=== PATIENT | female | born 1930 | race Caucasian/White ===

== ENCOUNTER 2018-02-17 10:00 | Inpatient (IN) | payer MEDICARE ==
[~2018-02-17] VITALS: Ht 160 cm; Wt 66.0 kg
[~2018-02-17 10:00] MED LIST: ALLEGRA60 M1 PO; ANTIVERT12.5 MG PO; OMEPRAZOLE DR20 MG PO; PLAVIX75 MG PO
[2018-02-17 10:04] VITALS: BP 157/69
[2018-02-17 10:25] LABS: BASO # 0.1 10*3/uL (0.0-0.1); BASO % 0.8 % (0.0-1.0); EOS # 0.3 10*3/uL (0.0-0.4); EOS % 3.4 % (1.0-4.0); HEMATOCRIT 39.4 % (37.0-47.0); HEMOGLOBIN 12.9 g/dl (12.0-16.0); LYMPH % 12.5 % (27.0-41.0); MEAN CELL VOLUME 102.3 fl (81.0-99.0); MEAN CORPUSCULAR HGB 33.5 pg (27.0-31.0); MEAN CORPUSCULAR HGB CONC 32.7 g/dl (33.0-37.0); MEAN PLATELET VOLUME 9.1 fl (9.6-12.3); MONO % 12.1 % (3.0-9.0); NEUT # 5.6 10*3/uL (2.3-7.9); NEUT % 70.8 % (47.0-73.0); PLATELET COUNT AUTOMATED 289 10*3/uL (130-400); RED BLOOD COUNT 3.85 10*6/uL (4.10-5.10); RED CELL DISTRI WIDTH 13.9 % (0-14.5); WHITE BLOOD COUNT 7.9 10*3/uL (4.8-10.8)
[2018-02-17 10:42] LABS: ALBUMIN 3.6 gm/dl (3.1-4.5); ALKALINE PHOSPHATASE 106 U/L (45-117); BUN 24 mg/dl (7-24); CHLORIDE 105 mmol/L (98-107); CREATININE 0.91 mg/dL (0.55-1.02); POTASSIUM 4.2 mmol/L (3.5-5.1); SGOT/AST 26 IU/L (3-35); SGPT/ALT 21 U/L (12-78); SODIUM 140 mmol/L (136-145); TOTAL PROTEIN 7.6 gm/dL (6.4-8.2)
[2018-02-17 10:49] LABS: TROPONIN I 0.096 ng/ml (<0.045)
[2018-02-17 11:14] VITALS: BP 152/71
[2018-02-17 12:00] VITALS: BP 164/78
[2018-02-17] MEDS ORDERED: LASIX40 MG PO (12:20)
[2018-02-17] MEDS ORDERED: SINGULAIR10 M1 PO (12:20)
[2018-02-17] MEDS ORDERED: VITAMIN D32000 UNI1 PO (12:27)
[2018-02-17] MEDS ORDERED: BENZONATATE100 M1 PO (12:27)
[2018-02-17] MEDS ORDERED: BENADRYL25 M2 PO (12:29)
[2018-02-17] MEDS ORDERED: CLARITIN10 MG PO (12:30)
[2018-02-17] MEDS ORDERED: MECLIZINE HCL12.5 MG PO (12:30)
[2018-02-17] MEDS ORDERED: MOTRIN IB200 M1 PO (12:31)
[2018-02-17] MEDS ORDERED: Ipratropium Brom3 ML INH (12:32)
[2018-02-17 13:30] VITALS: BP 152/70
[2018-02-17 16:00] VITALS: BP 134/62
[2018-02-17 20:00] VITALS: BP 138/67
[2018-02-18] VITALS: BP 123/63
[2018-02-18 06:29] LABS: BASO % 0.1 % (0.0-1.0); HEMATOCRIT 37.6 % (37.0-47.0); HEMOGLOBIN 12.7 g/dl (12.0-16.0); LYMPH # 0.7 10*3/uL (1.3-4.4); LYMPH % 8.9 % (27.0-41.0); MEAN CELL VOLUME 101.1 fl (81.0-99.0); MEAN CORPUSCULAR HGB 34.1 pg (27.0-31.0); MEAN CORPUSCULAR HGB CONC 33.8 g/dl (33.0-37.0); MEAN PLATELET VOLUME 9.6 fl (9.6-12.3); MONO # 0.5 10*3/uL (0.1-1.0); MONO % 6.7 % (3.0-9.0); NEUT # 6.6 10*3/uL (2.3-7.9); NEUT % 83.9 % (47.0-73.0); NUCLEATED RED BLOOD CELL 0.3 % (0.0-0.0); PLATELET COUNT AUTOMATED 330 10*3/uL (130-400); RED BLOOD COUNT 3.72 10*6/uL (4.10-5.10); RED CELL DISTRI WIDTH 13.9 % (0-14.5); WHITE BLOOD COUNT 7.9 10*3/uL (4.8-10.8)
[2018-02-18 06:41] LABS: ALBUMIN 3.3 gm/dl (3.1-4.5); CREATININE 1.24 mg/dL (0.55-1.02); PHOSPHOROUS 3.1 mg/dL (2.5-4.9); POTASSIUM 3.5 mmol/L (3.5-5.1); TOTAL PROTEIN 7.7 gm/dL (6.4-8.2)
[2018-02-18 06:47] LABS: FREE T4 1.05 ng/dl (0.76-1.46); THYROID STIM HORMONE (HS) 0.374 uIU/ml (0.358-4.75)
[2018-02-18 08:00] VITALS: BP 120/50
[2018-02-18 08:19] LABS: VITAMIN D, 25-HYDROXY 31.8 ng/mL (30-100)
[2018-02-18 16:00] VITALS: BP 114/57
[2018-02-18 20:00] VITALS: BP 138/64
[2018-02-19] VITALS: BP 145/75
[2018-02-19 08:00] VITALS: BP 160/68
[2018-02-19 08:33] LABS: ALBUMIN 3.1 gm/dl (3.1-4.5); BUN 30 mg/dl (7-24); CHLORIDE 104 mmol/L (98-107); CREATININE 0.92 mg/dL (0.55-1.02); PHOSPHOROUS 3.2 mg/dL (2.5-4.9); POTASSIUM 4.3 mmol/L (3.5-5.1); SODIUM 142 mmol/L (136-145)
[2018-02-19 12:00] VITALS: BP 154/62
[2018-02-20] VITALS: BP 143/73
[2018-02-20 08:00] VITALS: BP 150/66
[2018-02-20 12:00] VITALS: BP 130/58
[2018-02-20] MEDS ORDERED: PREDNISONE10 MG PO (15:47)
[2018-02-20] MEDS ORDERED: ZITHROMAX250 MG PO (15:47)
[2018-02-20 16:00] VITALS: BP 121/66
== END 2018-02-20 18:06 | disposition home or self-care (01) | DRG 291 ==
LOC: ED 10:00 → 5E 11:04 → EDHOLD 11:04 → 5E 11:15
PROVIDERS: Nurse Practitioner Family; Registered Nurse
DX: I11.0 Hypertensive heart disease with heart failure (principal); J96.01 Acute respiratory failure with hypoxia; J18.9 Pneumonia, unspecified organism; J44.0 Chronic obstructive pulmonary disease with (acute) lower respiratory infection; I24.8 Other forms of acute ischemic heart disease; I50.33 Acute on chronic diastolic (congestive) heart failure; R91.1 Solitary pulmonary nodule; E83.41 Hypermagnesemia; R00.1 Bradycardia, unspecified; I44.0 Atrioventricular block, first degree; I25.10 Atherosclerotic heart disease of native coronary artery without angina pectoris; Z66 Do not resuscitate; Z51.5 Encounter for palliative care; F03.90 Unspecified dementia, unspecified severity, without behavioral disturbance, psychotic disturbance, mood disturbance, and anxiety; Z86.73 Personal history of transient ischemic attack (TIA), and cerebral infarction without residual deficits; Z88.2 Allergy status to sulfonamides; Z88.1 Allergy status to other antibiotic agents; Z88.8 Allergy status to other drugs, medicaments and biological substances; Z79.899 Other long term (current) drug therapy; Z79.1 Long term (current) use of non-steroidal anti-inflammatories (NSAID); Z82.3 Family history of stroke; Z80.6 Family history of leukemia; Z79.02 Long term (current) use of antithrombotics/antiplatelets

== ENCOUNTER 2018-03-27 16:11 | Inpatient (IN) | payer MEDICARE ==
[~2018-03-27] VITALS: Ht 160 cm; Wt 65.8 kg
[~2018-03-27 16:11] MED LIST changes: +BENADRYL25 M2 PO; +BENZONATATE100 M1 PO; +CLARITIN10 MG PO; +Ipratropium Brom3 ML INH; +LASIX40 MG PO; +LOTRISONE30 ML PO; +MECLIZINE HCL12.5 MG PO; +MOTRIN IB200 M1 PO; +PREDNISONE10 MG PO; +SINGULAIR10 M1 PO; +VITAMIN D32000 UNI1 PO; +ZITHROMAX250 MG PO
[2018-03-27 16:15] VITALS: BP 153/63
[2018-03-27 16:34] LABS: BILIRUBIN NEGATIVE (NEGATIVE); BLOOD NEGATIVE (NEGATIVE); CLARITY CLEAR (CLEAR); COLOR YELLOW (YELLOW); GLUCOSE NEGATIVE (NEGATIVE); KETONE NEGATIVE (NEGATIVE); LEUKO ESTERASE 1+ (NEGATIVE); NITRITE NEGATIVE (NEGATIVE); UROBILINOGEN 0.2 E.U./dl (0.2-1.0)
[2018-03-27 16:41] LABS: BACTERIA TRACE
[2018-03-27 17:35] VITALS: BP 150/73
[2018-03-27 17:40] LABS: BASO # 0.1 10*3/uL (0.0-0.1); BASO % 0.7 % (0.0-1.0); EOS # 0.1 10*3/uL (0.0-0.4); EOS % 1.6 % (1.0-4.0); HEMATOCRIT 37.1 % (37.0-47.0); HEMOGLOBIN 11.8 g/dl (12.0-16.0); LYMPH # 1.1 10*3/uL (1.3-4.4); MEAN CELL VOLUME 104.8 fl (81.0-99.0); MEAN CORPUSCULAR HGB 33.3 pg (27.0-31.0); MEAN CORPUSCULAR HGB CONC 31.8 g/dl (33.0-37.0); MEAN PLATELET VOLUME 9.4 fl (9.6-12.3); MONO # 1.3 10*3/uL (0.1-1.0); MONO % 18.6 % (3.0-9.0); NEUT # 4.3 10*3/uL (2.3-7.9); NEUT % 61.7 % (47.0-73.0); PLATELET COUNT AUTOMATED 293 10*3/uL (130-400); RED BLOOD COUNT 3.54 10*6/uL (4.10-5.10); RED CELL DISTRI WIDTH 13.9 % (0-14.5)
[2018-03-27 17:48] LABS: ACT PARTIAL THROMBO TIME 21.9 SECONDS (20.8-31.5); INTERNATIONAL NORM RATIO 0.9 (2.0-3.5)
[2018-03-27 17:56] LABS: ALBUMIN 3.1 gm/dl (3.1-4.5); ALKALINE PHOSPHATASE 117 U/L (45-117); BUN 18 mg/dl (7-24); CHLORIDE 100 mmol/L (98-107); CREATININE 1.08 mg/dL (0.55-1.02); LIPASE 58 U/L (73-393); POTASSIUM 4.3 mmol/L (3.5-5.1); SGOT/AST 23 IU/L (3-35); SGPT/ALT 21 U/L (12-78); SODIUM 140 mmol/L (136-145); TOTAL PROTEIN 7.5 gm/dL (6.4-8.2)
[2018-03-27 18:05] LABS: TROPONIN I < 0.015 ng/ml (<0.045)
[2018-03-27 18:42] VITALS: BP 133/58
[2018-03-27 20:00] VITALS: BP 143/57
[2018-03-27 21:30] VITALS: BP 143/57
[2018-03-27] MEDS ORDERED: BREO ELLIPTA 11 EACH INH (22:11)
[2018-03-27] MEDS ORDERED: ALDACTONE25 M1 PO (22:12)
[2018-03-28] VITALS: BP 136/62
[2018-03-28 06:50] LABS: BASO % 0.3 % (0.0-1.0); EOS # 0.1 10*3/uL (0.0-0.4); EOS % 1.5 % (1.0-4.0); HEMATOCRIT 32.6 % (37.0-47.0); HEMOGLOBIN 10.5 g/dl (12.0-16.0); LYMPH # 1.2 10*3/uL (1.3-4.4); LYMPH % 17.3 % (27.0-41.0); MEAN CELL VOLUME 103.8 fl (81.0-99.0); MEAN CORPUSCULAR HGB 33.4 pg (27.0-31.0); MEAN CORPUSCULAR HGB CONC 32.2 g/dl (33.0-37.0); MEAN PLATELET VOLUME 9.2 fl (9.6-12.3); MONO # 1.3 10*3/uL (0.1-1.0); MONO % 19.1 % (3.0-9.0); NEUT # 4.1 10*3/uL (2.3-7.9); NEUT % 60.8 % (47.0-73.0); PLATELET COUNT AUTOMATED 261 10*3/uL (130-400); RED BLOOD COUNT 3.14 10*6/uL (4.10-5.10); WHITE BLOOD COUNT 6.8 10*3/uL (4.8-10.8)
[2018-03-28 07:13] LABS: BUN 17 mg/dl (7-24); CHLORIDE 102 mmol/L (98-107); CREATININE 0.98 mg/dL (0.55-1.02); SODIUM 139 mmol/L (136-145)
[2018-03-28 08:00] VITALS: BP 127/57
[2018-03-28 12:00] VITALS: BP 115/61
[2018-03-28 16:00] VITALS: BP 120/61
[2018-03-28 20:00] VITALS: BP 124/57
[2018-03-29] VITALS: BP 116/70
[2018-03-29 06:08] LABS: HEMOGLOBIN 10.2 g/dl (12.0-16.0); MEAN CELL VOLUME 104.6 fl (81.0-99.0); MEAN CORPUSCULAR HGB 33.3 pg (27.0-31.0); MEAN CORPUSCULAR HGB CONC 31.9 g/dl (33.0-37.0); MEAN PLATELET VOLUME 9.6 fl (9.6-12.3); PLATELET COUNT AUTOMATED 266 10*3/uL (130-400); RED BLOOD COUNT 3.06 10*6/uL (4.10-5.10); RED CELL DISTRI WIDTH 14.1 % (0-14.5); WHITE BLOOD COUNT 5.2 10*3/uL (4.8-10.8)
[2018-03-29 06:27] LABS: BUN 23 mg/dl (7-24); CHLORIDE 105 mmol/L (98-107); CREATININE 1.04 mg/dL (0.55-1.02); POTASSIUM 3.9 mmol/L (3.5-5.1); SODIUM 142 mmol/L (136-145)
[2018-03-29 07:30] LABS: BASOPHILS 2 % (0-1); PLATELET SUFFICIENCY NORMAL (NORMAL); TOTAL CELLS COUNTED 100 #CELLS
[2018-03-29 08:00] VITALS: BP 124/65
[2018-03-29 12:00] VITALS: BP 121/54
[2018-03-29] MEDS ORDERED: DOXYCYCLINE100 M3 PO (12:39)
[2018-03-29 16:00] VITALS: BP 116/54
== END 2018-03-29 16:57 | disposition home or self-care (01) | DRG 603 ==
LOC: ED 16:11 → EDHOLD 19:01 → 4E 19:01
PROVIDERS: Internal Medicine Nephrology; Physician Assistant; Student in an Organized Health Care Education/Training Program
DX: L03.116 Cellulitis of left lower limb (principal); E87.2 Acidosis; D53.9 Nutritional anemia, unspecified; I11.0 Hypertensive heart disease with heart failure; I50.32 Chronic diastolic (congestive) heart failure; N30.00 Acute cystitis without hematuria; E66.3 Overweight; L03.115 Cellulitis of right lower limb; D72.810 Lymphocytopenia; J44.9 Chronic obstructive pulmonary disease, unspecified; F03.90 Unspecified dementia, unspecified severity, without behavioral disturbance, psychotic disturbance, mood disturbance, and anxiety; Z88.1 Allergy status to other antibiotic agents; Z88.2 Allergy status to sulfonamides; Z88.8 Allergy status to other drugs, medicaments and biological substances; Z79.2 Long term (current) use of antibiotics; Z79.899 Other long term (current) drug therapy; Z82.3 Family history of stroke; Z80.6 Family history of leukemia; Z86.73 Personal history of transient ischemic attack (TIA), and cerebral infarction without residual deficits